=== PATIENT | female | born 1955 | race Caucasian/White ===

== ENCOUNTER 2017-06-11 12:34 | Inpatient (IN) | payer MEDICAID, OTHER ==
[~2017-06-11] VITALS: Ht 167.6 cm; Wt 148.0 kg
[~2017-06-11 12:34] MED LIST: ASPI81 PO; FURO40TA PO; KLOR20TA6 PO; MEDR5TAB20 PO; PROT40TA PO; TOPR50TA PO; VITA-83 OR; VITA400C28 PO
[2017-06-11 12:38] VITALS: BP 199/96; PULSE 103; RESP 26; TEMP 97.9; O2SAT 98
[2017-06-11] MEDS ORDERED: SODIUM CHLOR 0.9% 1000 ML INJ 1,000 ML IV SCH (12:55)
[2017-06-11] MEDS ORDERED: VANCOMYCIN INJ 1,000 MG in SODIUM CHLOR 0.9% 250 ML INJ 250 ML IV ONE (13:00)
[2017-06-11] MEDS ORDERED: AMPICILLIN-SULBACTAM INJ 3 GM in SODIUM CHLORIDE 0.9% INJ 100 ML IV ONE (13:00)
[2017-06-11] MEDS ORDERED: MORPHINE SULFATE 4 MG/ML INJ IV PUSH ONE (13:00)
[2017-06-11] MEDS ORDERED: KETOROLAC TROMETHAMINE 30 MG/ML (IVP) VIAL IV PUSH ONE (13:30)
[2017-06-11] MEDS ORDERED: ONDANSETRON HCL 4 MG/2 ML VIAL IV PUSH ONE (13:30)
[2017-06-11] MEDS ORDERED: HYDROmorphone HCL PF 2 MG/ML VIAL IV PUSH ONE (13:30)
[2017-06-11 13:36] LABS: BASOPHIL # 0.1 TH/MM3 (0-0.2); BASOPHIL % 0.7 % (0.0-2.0); EOSINOPHIL # 0.2 TH/MM3 (0-0.4); EOSINOPHIL % 1.1 % (0.0-4.0); HEMATOCRIT 37.5 % (35.0-46.0); HEMOGLOBIN 11.8 GM/DL (11.6-15.3); LYMPH % 6.2 % (9.0-44.0); LYMPHOCYTE # 1.2 TH/MM3 (1.0-4.8); MEAN CELL VOLUME 78.8 FL (80.0-100.0); MEAN CORPUSCULAR HEMOGLOBIN 24.8 PG (27.0-34.0); MEAN CORPUSCULAR HGB CONC 31.4 % (32.0-36.0); MEAN PLATELET VOLUME 7.2 FL (7.0-11.0); MONOCYTE # 1.1 TH/MM3 (0-0.9); PLATELET COUNT 566 TH/MM3 (150-450); RED BLOOD COUNT 4.75 MIL/MM3 (4.00-5.30); RED CELL DISTRIBUTION WIDTH 17.8 % (11.6-17.2); WHITE BLOOD COUNT 18.5 TH/MM3 (4.0-11.0)
[2017-06-11 13:57] LABS: ALBUMIN 2.5 GM/DL (3.4-5.0); ALT (GPT) 23 U/L (10-53); AST (GOT) 18 U/L (15-37); BICARBONATE 19.2 MEQ/L (21.0-32.0); BLOOD UREA NITROGEN 44 MG/DL (7-18); C-REACTIVE PROTEIN 8.47 MG/DL (0.00-0.30); CALCIUM 8.9 MG/DL (8.5-10.1); CHLORIDE 100 MEQ/L (98-107); CREATININE 1.55 MG/DL (0.50-1.00); GLOMERULAR FILTRATION RATE 34 ML/MIN (>89); GLUCOSE,RANDOM 182 MG/DL (74-106); SODIUM (NA) 129 MEQ/L (136-145)
[2017-06-11 13:59] LABS: ALKALINE PHOSPHATASE 98 U/L (45-117); TOTAL BILIRUBIN ADULT 0.3 MG/DL (0.2-1.0); TOTAL PROTEIN 7.7 GM/DL (6.4-8.2)
--- NOTE | 2017-06-11 14:13 | PD ---
HPI Chief Complaint: Skin Problem Time Seen by Provider: 12:47 Travel History International Travel<30 days: No Contact w/Intl Traveler<30days: No Traveled to known affect area: No History of Present Illness HPI 62-year-old female that presents to the ED for evaluation of skin problem to the lower legs. Per patient she's been having an infection that she's had for almost 3 weeks to 4 weeks. Patient states that she was admitted to [facility] on April for the same and was put on antibiotics but per patient she was not given any outpatient resources. Per patient she has been going to multiple ERs to get checked for her legs but they keep giving her by mouth antibiotics and she continues to get worse. She states that she's been twice a [facility] and she's been compliant with the medications given to her including many pendant as well as Levaquin and apparently Percocet. Per patient the pain is getting more severe and the legs do not seem to be improving and she is concerned. She is concerned that the pain is 10 out of 10. She states that she is taking pain medication from another individual. She denies any chest pressure was over appears his is having chills and sweats. No injuries or trauma. She does have a chronic history of venous stasis and leg edema which appears to be chronic. She does take Lasix. PFSH Past Medical History Autoimmune Disease: No Blood Disorders: No Cancer: No Cardiovascular Problems: Yes (SINGLE EPISODE TACHYCARDIA) High Cholesterol: Yes Chest Pain: Yes Diabetes: Yes Patient Takes Glucophage: Yes (06/10/17) Diminished Hearing: No Endocrine: No Gastrointestinal Disorders: Yes (GERD) GERD: Yes Glaucoma: No Genitourinary: No Hepatitis: No Hiatal Hernia: No Hypertension: Yes Immune Disorder: No Medical other: Yes (REFLUX) Musculoskeletal: No Neurologic: No Psychiatric: No Reproductive: Yes (POST MENOPAUSAL BLEEDING) Respiratory: No Thyroid Disease: No Influenza Vaccination: Yes ?: Not Past Surgical History Abdominal Surgery: Yes (REDDY ) Body Medical Devices: NONE Section: Yes Cholecystectomy: Yes Gynecologic Surgery: Yes (C SECTION X 3; D&C HYSTEROSCOPY 01/13 AND 12/14) Pacemaker: No Other Surgery: Yes Social History Alcohol Use: No Tobacco Use: No Substance Use: No Allergies-Medications (Allergen,Severity, Reaction): Coded Allergies: No Known Allergies (Verified , 07/31/13) Reported Meds & Prescriptions Reported Meds & Active Scripts Active Reported Vitamin D 400 Unit Tab 400 Unit PO DAILY Furosemide 40 Mg Tab 40 Mg PO DAILY Vitamin C (Calcium Ascorbate) 500 Mg Tab 1,000 Mg OR DAILY Medroxyprogesterone Aceta (Medroxyprogesterone Acetate) 5 Mg Tab 2.5 Mg PO DAILY Aspirin 81 Mg Tab 81 Mg PO DAILY K-Dur (Potassium Chloride) 20 Meq Tabcr 10 Meq PO DAILY Protonix (Pantoprazole Sodium) 40 Mg Tabdr 40 Mg PO HS Toprol Xl (Metoprolol Succinate) 50 Mg Tabcr 50 Mg PO BID Review of Systems Except as stated in HPI: all other systems reviewed are Neg Physical Exam Narrative GENERAL: SKIN: Warm and dry. HEAD: Atraumatic. Normocephalic. EYES: Pupils equal and round. No scleral icterus. No injection or drainage. ENT: No nasal bleeding or discharge. Mucous membranes pink and moist. Tongue is midline. No uvula deviation. NECK: Trachea midline. No JVD. CARDIOVASCULAR: Regular rate and rhythm. No murmurs, S3, S4. RESPIRATORY: No accessory muscle use. Clear to auscultation. Breath sounds equal bilaterally. GASTROINTESTINAL: Abdomen soft, non-tender, nondistended. Hepatic and splenic margins not palpable. MUSCULOSKELETAL: Extremities without clubbing, cyanosis, or edema. No obvious deformities. Full range of motion of the upper and lower extremities bilaterally. Patient does have 2+ pitting edema in the lower legs with erythema and ulcerations to the legs bilaterally. More noted on the tib-fib area. Very tender to touch. Very erythematous and weeping white yellowish fluid. Very foul smelling. NEUROLOGICAL: Awake and alert. No obvious cranial nerve deficits. Motor grossly within normal limits. Five out of 5 muscle strength in the arms and legs. Normal speech. PSYCHIATRIC: Appropriate mood and affect; insight and judgment normal. Data Data Last Documented VS Vital Signs Date Time Temp Pulse Resp B/P (MAP) Pulse Ox O2 Delivery O2 Flow Rate FiO2 06/11/17 12:38 97.9 103 26 199/96 (130) 98 Orders Orders Complete Blood Count With Diff (06/11/17 12:55) Comprehensive Metabolic Panel (06/11/17 12:55) Lactic Acid (06/11/17 12:55) Iv Access Insert/Monitor (06/11/17 12:55) Ecg Monitoring (06/11/17 12:55) Oximetry (06/11/17 12:55) Morphine Inj (Morphine Inj) (06/11/17 13:00) Sodium Chlor 0.9% 1000 Ml Inj (Ns 1000 M (06/11/17 12:55) Blood Culture (06/11/17 12:55) Wound Culture And Gram Stain (06/11/17 12:55) Wound Care (06/11/17 12:55) Vancomycin Inj (Vancomycin Inj) (06/11/17 13:00) Ampicillin-Sulbactam Inj (Unasyn Inj) (06/11/17 13:00) Lactic Acid Sepsis Protocol (06/11/17 12:55) C-Reactive Protein (Crp) (06/11/17 12:55) Hydromorphone Pf Inj (Dilaudid Pf Inj) (06/11/17 13:30) Ondansetron Inj (Zofran Inj) (06/11/17 13:30) Ketorolac Inj (Toradol Inj) (06/11/17 13:30) Sodium Chlor 0.9% 1000 Ml Inj (Ns 1000 M (06/11/17 14:15) Admit Order (Ed Use Only) (06/11/17 14:32) Labs Laboratory Tests Test 06/11/17 13:12 White Blood Count 18.5 TH/MM3 Red Blood Count 4.75 MIL/MM3 Hemoglobin 11.8 GM/DL Hematocrit 37.5 % Mean Corpuscular Volume 78.8 FL Mean Corpuscular Hemoglobin 24.8 PG Mean Corpuscular Hemoglobin Concent 31.4 % Red Cell Distribution Width 17.8 % Platelet Count 566 TH/MM3 Mean Platelet Volume 7.2 FL Neutrophils (%) (Auto) 86.0 % Lymphocytes (%) (Auto) 6.2 % Monocytes (%) (Auto) 6.0 % Eosinophils (%) (Auto) 1.1 % Basophils (%) (Auto) 0.7 % Neutrophils # (Auto) 16.0 TH/MM3 Lymphocytes # (Auto) 1.2 TH/MM3 Monocytes # (Auto) 1.1 TH/MM3 Eosinophils # (Auto) 0.2 TH/MM3 Basophils # (Auto) 0.1 TH/MM3 CBC Comment DIFF FINAL Differential Comment Blood Urea Nitrogen 44 MG/DL Creatinine 1.55 MG/DL Random Glucose 182 MG/DL Total Protein 7.7 GM/DL Albumin 2.5 GM/DL Calcium Level 8.9 MG/DL Alkaline Phosphatase 98 U/L Aspartate Amino Transf (AST/SGOT) 18 U/L Alanine Aminotransferase (ALT/SGPT) 23 U/L Total Bilirubin 0.3 MG/DL Sodium Level 129 MEQ/L Potassium Level 5.6 MEQ/L Chloride Level 100 MEQ/L Carbon Dioxide Level 19.2 MEQ/L Anion Gap 10 MEQ/L Estimat Glomerular Filtration Rate 34 ML/MIN Lactic Acid Level 2.3 mmol/L C-Reactive Protein 8.47 MG/DL MDM Medical Decision Making Medical Screen Exam Complete: Yes Emergency Medical Condition: Yes Medical Record Reviewed: Yes Interpretation(s) CBC & BMP Diagram 06/11/17 13:12 Total Protein 7.7, Albumin 2.5 L, Calcium Level 8.9, Alkaline Phosphatase 98, Aspartate Amino Transf (AST/SGOT) 18, Alanine Aminotransferase (ALT/SGPT) 23, Total Bilirubin 0.3 lactic acid elevated CRP highly elevated Differential Diagnosis Cellulitis versus failed outpatient treatment versus sepsis versus chronic ulcers Narrative Course 62-year-old female that presents to the ED for evaluation of leg swelling and pain. Patient was properly examined and was found to have signs and symptoms consistent with what appears to be significant cellulitis. Patient already taking antibiotics by mouth. Per patient she was seen at [facility] had cultures that show for different bacteria but she does not have information about this bacteria. She's never been this hospital for this before. Labs and imaging were ordered. Patient was started on antibiotics. I did a culture here as well as blood cultures. Labs did show significant white blood cell count elevation as well as likely acidosis. CRP elevated what appears to be also acute kidney injury. Locomotion is time for admission for further evaluation and treatment of the cellulitis as she has failed outpatient treatment. I was able to get records from [facility] and she was seen twice last time in June 04. She had blood work that did show leukocytosis but she was sent with by mouth medications as well as by mouth narcotics. I do not have any results of any blood cultures or wound cultures that were done, if they were done at that time. I suspect some noncompliance as well as from the patient. Patient will be admitted. Patient agrees to this. Case will be discussed with [facility] doctor. Dr Gaming agrees to admission. Sepsis Criteria SIRS Criteria (2 or more): Heart rate over 90, WBC > 28675, < 4000 or > 10% bands Sepsis Criteria (SIRS+source): Infect source susp/known Severe Sepsis (+one): Lactate >2 Criteria Outcome: Meets severe sepsis criteria Diagnosis Primary Impression: Cellulitis Qualified Codes: L03.119 - Cellulitis of unspecified part of limb Additional Impression: Sepsis Qualified Codes: A41.9 - Sepsis, unspecified organism Admitting Information Admitting Physician Requests: Admit Myles Gipson Jun 11, 2017 14:13
[2017-06-11] MEDS ORDERED: SODIUM CHLOR 0.9% 1000 ML INJ 1,000 ML IV ONE (14:15)
[2017-06-11] MEDS ORDERED: SENNOSIDES 8.6 MG TAB PO PRN (15:00)
[2017-06-11] MEDS ORDERED: ACETAMINOPHEN 325 MG TAB PO PRN (15:00)
[2017-06-11] MEDS ORDERED: GLUCAGON 1 MG/ML VIAL OTHER PRN (15:00)
[2017-06-11] MEDS ORDERED: ONDANSETRON HCL 4 MG/2 ML VIAL IVP PRN (15:00)
[2017-06-11] MEDS ORDERED: SODIUM CHLORIDE 0.9% FLUSH 10 ML FLUSH IV FLUSH PRN (15:00)
[2017-06-11] MEDS ORDERED: NALOXONE HCL 0.4 MG/ML AMP IV PUSH PRN (15:00)
[2017-06-11] MEDS ORDERED: BISACODYL 10 MG SUPP RECTAL PRN (15:00)
[2017-06-11] MEDS ORDERED: MAGNESIUM HYDROXIDE SUSP 30 ML CUP PO PRN (15:00)
[2017-06-11] MEDS ORDERED: LACTULOSE SYRUP 20 GM/30 ML CUP PO PRN (15:00)
[2017-06-11] MEDS ORDERED: METF500T PO (15:00)
[2017-06-11] MEDS ORDERED: DEXTROSE 50% IN WATER 50 ML VIAL(D50) IV PUSH PRN (15:00)
[2017-06-11 15:12] VITALS: BP 149/67; PULSE 79; RESP 17; O2SAT 98
[2017-06-11] MEDS: VANCOMYCIN INJ 1,000 MG in SODIUM CHLOR 0.9% 250 ML INJ 250 ML IV SCH (16:00)
--- NOTE | 2017-06-11 16:29 | HHI.HP ---
HPI Service [facility] Primary Care Physician Lamonte Lewis D.O. Admission Diagnosis bilateral leg cellulitis, failed outpatient treatment, JOVANNY Diagnoses: Travel History International Travel<30 Days: No Contact w/Intl Traveler <30 Da: No Traveled to Known Affected Are: No History of Present Illness 62F with h/o obesity, DM2 and neuropathy presents with open infection of bilateral lower extremities, worse on the left than the right. This all began around April 30 when she visited [facility] with similar symptoms, during that hospitalization she was given antibiotics for 5 days, and had drastic improvement. She did not, however, have closure of the wounds and after going home had no follow up for wound care, so things slowly became worse. She revisited the ER at [facility] one more time, but was not admitted. Today she complains of intractable pain related to the open ulcerations of her lower legs. She has had subjective fevers and the smell and drainage has become worrisome to her. She is unable to care for herself at home and her daughter is not able to care for her at this level. Review of Systems Constitutional: COMPLAINS OF: Fatigue, Fever, DENIES: Diaphoretic episodes, Weight gain, Weight loss Endocrine: DENIES: Polydipsia, Polyuria Ears, nose, mouth, throat: DENIES: Vertigo, Running Nose, Sinus Pain, Toothache Respiratory: DENIES: Cough Genitourinary: DENIES: Urinary incontinence, Urgency, Dysuria Musculoskeletal: DENIES: Joint pain, Stiffness, Joint Swelling Neurologic: DENIES: Seizures Psychiatric: DENIES: Anxiety, Confusion, Mood changes, Depression Past Family Social History Past Medical History DM2 Past Surgical History Cholecystectomy Allergies: Coded Allergies: No Known Allergies (Verified Allergy, Unknown, 06/11/17) Family History Type 2 diabetes Social History Denies tobacco or alcohol use Physical Exam Vital Signs Vital Signs Date Time Temp Pulse Resp B/P (MAP) Pulse Ox O2 Delivery O2 Flow Rate FiO2 06/11/17 15:12 79 17 149/67 (94) 98 Room Air 06/11/17 12:38 97.9 103 26 199/96 (130) 98 Physical Exam GENERAL: Obese, poor health, somewhat disheveled female SKIN: Wild open wet wounds on bilateral posterior LE's with caked clumpy yellowish deposits, very smelly, open HEAD: Atraumatic. Normocephalic. No temporal or scalp tenderness. EYES: Pupils equal round and reactive. Extraocular motions intact. No scleral icterus. No injection or drainage. ENT: Nose without bleeding, purulent drainage or septal hematoma. Throat without erythema, tonsillar hypertrophy or exudate. Uvula midline. Airway patent. NECK: Trachea midline. No JVD or lymphadenopathy. Supple, nontender, no meningeal signs. CARDIOVASCULAR: Regular rate and rhythm without murmurs, gallops, or rubs. RESPIRATORY: Clear to auscultation. Breath sounds equal bilaterally. No wheezes , rales, or rhonchi. GASTROINTESTINAL: Abdomen soft, obese, non-tender, nondistended. No hepato- splenomegaly, or palpable masses. No guarding. MUSCULOSKELETAL: Extremities without clubbing, cyanosis, or edema. No joint tenderness, effusion, lymphedematous ankles NEUROLOGICAL: Awake and alert. Cranial nerves II through XII intact. Motor and sensory grossly within normal limits. Five out of 5 muscle strength in all muscle groups. Normal speech. Laboratory Laboratory Tests Test 06/11/17 13:12 06/11/17 15:27 White Blood Count 18.5 Red Blood Count 4.75 Hemoglobin 11.8 Hematocrit 37.5 Mean Corpuscular Volume 78.8 Mean Corpuscular Hemoglobin 24.8 Mean Corpuscular Hemoglobin Concent 31.4 Red Cell Distribution Width 17.8 Platelet Count 566 Mean Platelet Volume 7.2 Neutrophils (%) (Auto) 86.0 Lymphocytes (%) (Auto) 6.2 Monocytes (%) (Auto) 6.0 Eosinophils (%) (Auto) 1.1 Basophils (%) (Auto) 0.7 Neutrophils # (Auto) 16.0 Lymphocytes # (Auto) 1.2 Monocytes # (Auto) 1.1 Eosinophils # (Auto) 0.2 Basophils # (Auto) 0.1 CBC Comment DIFF FINAL Differential Comment Blood Urea Nitrogen 44 Creatinine 1.55 Random Glucose 182 Total Protein 7.7 Albumin 2.5 Calcium Level 8.9 Alkaline Phosphatase 98 Aspartate Amino Transf (AST/SGOT) 18 Alanine Aminotransferase (ALT/SGPT) 23 Total Bilirubin 0.3 Sodium Level 129 Potassium Level 5.6 Chloride Level 100 Carbon Dioxide Level 19.2 Anion Gap 10 Estimat Glomerular Filtration Rate 34 Lactic Acid Level 2.3 1.4 C-Reactive Protein 8.47 Date/Time Source Procedure Growth Status 06/11/17 13:12 Blood Peripheral Aerobic Blood Culture Pending Received 06/11/17 13:12 Blood Peripheral Anaerobic Blood Culture Pending Received 06/11/17 13:12 Wound Leg Gram Stain Pending Received 06/11/17 13:12 Wound Leg Wound Culture Pending Received Result Diagram: 06/11/17 1312 06/11/17 1312 Septic Shock Reassessment Septic shock perfusion: reassessment completed Caprini VTE Risk Assessment Caprini VTE Risk Assessment: Mod/High Risk (score >= 2) Caprini Risk Assessment Model Point Value = 1 Point Value = 2 Point Value = 3 Point Value = 5 Age 41-60 Minor surgery BMI > 25 kg/m2 Swollen legs Varicose veins or History of unexplained or recurrent spontaneous Oral contraceptives or hormone replacement Sepsis (< 1 month) Serious lung disease, including pneumonia (< 1 month) Abnormal pulmonary function Acute myocardial infarction Congestive heart failure (< 1 month) History of inflammatory bowel disease Medical patient at bed rest Age 61-74 Arthroscopic surgery Major open surgery (> 45 min) Laparoscopic surgery (> 45 min) Malignancy Confined to bed (> 72 hours) Immobilizing plaster cast Central venous access Age >= 75 History of VTE Family history of VTE Factor V Leiden Prothrombin [id number] Lupus anticoagulant Anticardiolipin antibodies Elevated serum homocysteine Heparin-induced thrombocytopenia Other congenital or acquired thrombophilia Stroke (< 1 month) Elective arthroplasty Hip, pelvis, or leg fracture Acute spinal cord injury (< 1 month) Prophylaxis Regimen Total Risk Factor Score Risk Level Prophylaxis Regimen 0-1 Low Early ambulation 2 Moderate Order ONE of the following: *Sequential Compression Device (SCD) *Heparin 5000 units SQ BID 3-4 Higher Order ONE of the following medications: *Heparin 5000 units SQ TID *Enoxaparin/Lovenox 40 mg SQ daily (WT < 150 kg, CrCl > 30 mL/min) *Enoxaparin/Lovenox 30 mg SQ daily (WT < 150 kg, CrCl > 10-29 mL/min) *Enoxaparin/Lovenox 30 mg SQ BID (WT < 150 kg, CrCl > 30 mL/min) AND/OR *Sequential Compression Device (SCD) 5 or more Highest Order ONE of the following medications: *Heparin 5000 units SQ TID (Preferred with Epidurals) *Enoxaparin/Lovenox 40 mg SQ daily (WT < 150 kg, CrCl > 30 mL/min) *Enoxaparin/Lovenox 30 mg SQ daily (WT < 150 kg, CrCl > 10-29 mL/min) *Enoxaparin/Lovenox 30 mg SQ BID (WT < 150 kg, CrCl > 30 mL/min) AND *Sequential Compression Device (SCD) Assessment and Plan Problem List: (1) Sepsis ICD Code: A41.9 - Sepsis, unspecified organism Status: Acute (2) Cellulitis ICD Code: L03.90 - Cellulitis, unspecified Status: Acute Assessment and Plan Bilateral LE cellulitis with Sepsis Continue broad spectrum coverage with Vancomycin and Zosyn, coverage for MRSA and Sepsis Will review narcotics for adequate pain control Consult wound care wrecker operator for evaluation Follow up Lactic Acid level, monitor on telemetry and watch closely for any changes Type 2 Diabetes Sliding scale insulin coverage Diabetic Diet Accuchecks Acute Renal Insufficiency Seems secondary to dehydration Will replenish via PO and follow BUN/Cr DVT Prophylaxis Lovenox Physician Certification 2 Midnight Certification Type: Admission for Inpatient Services Order for Inpatient Services The services are ordered in accordance with Medicare regulations or non- Medicare payer requirements, as applicable. In the case of services not specified as inpatient-only, they are appropriately provided as inpatient services in accordance with the 2-midnight benchmark. Estimated LOS (days): 3 days is the estimated time the patient will need to remain in the hospital, assuming treatment plan goals are met and no additional complications. Post-Hospital Plan: Home Health Problem Qualifiers (1) Sepsis: Qualified Codes: A41.9 - Sepsis, unspecified organism (2) Cellulitis: Qualified Codes: L03.119 - Cellulitis of unspecified part of limb Ramiro Gaming MD Jun 11, 2017 4:29 pm
[2017-06-11] MEDS ORDERED: AMPICILLIN-SULBACTAM INJ 1,500 MG in SODIUM CHLORIDE 0.9% INJ 100 ML IV SCH (17:00)
[2017-06-11] MEDS ORDERED: PROT40TA PO (17:09)
[2017-06-11] MEDS ORDERED: TOPR50TA PO (17:09)
[2017-06-11] MEDS ORDERED: POTA10TA15 PO (17:09)
[2017-06-11] MEDS ORDERED: ASPI81TA16 PO (17:09)
[2017-06-11] MEDS ORDERED: VITATAB56 PO (17:09)
[2017-06-11] MEDS ORDERED: ASCO100029 PO (17:09)
[2017-06-11] MEDS ORDERED: FURO1TAB60 PO (17:09)
[2017-06-11 17:55] VITALS: BP 134/59; PULSE 89; RESP 20; TEMP 98.7; O2SAT 98
[2017-06-11] MEDS: INSULIN ASPART SUPPLEMENTAL SCALE SQ SCH ×2 (18:01→20:46)
[2017-06-11] MEDS: ENOXAPARIN SODIUM 40 MG/0.4 ML SYRINGE SQ SCH (18:19)
[2017-06-11 20:00] VITALS: BP 148/70; PULSE 101; PULSE 89; RESP 17; TEMP 97.7; O2SAT 98
[2017-06-11] MEDS: SODIUM CHLORIDE 0.9% FLUSH 10 ML FLUSH IV FLUSH SCH (20:45)
[2017-06-11] MEDS: AMPICILLIN-SULBACTAM INJ 1,500 MG in SODIUM CHLORIDE 0.9% INJ 100 ML IV SCH (20:46)
[2017-06-11] MEDS: DOCUSATE SODIUM 50 MG/SENNA 8.6 MG TAB PO SCH (20:46)
[2017-06-11] MEDS: oxyCODONE/ACETAMINOPHEN 7.5 MG/325 MG TAB PO PRN (23:59)
[2017-06-12] VITALS: BP 145/67; PULSE 88; RESP 17; TEMP 97.8; O2SAT 97
[2017-06-12] MEDS: AMPICILLIN-SULBACTAM INJ 1,500 MG in SODIUM CHLORIDE 0.9% INJ 100 ML IV SCH ×2 (01:59→09:08)
[2017-06-12] MEDS: VANCOMYCIN INJ 1,000 MG in SODIUM CHLOR 0.9% 250 ML INJ 250 ML IV SCH ×2 (02:58→15:15)
[2017-06-12 04:00] VITALS: BP 144/67; PULSE 69; PULSE 88; RESP 17; TEMP 97.8; O2SAT 97
[2017-06-12] MEDS: oxyCODONE/ACETAMINOPHEN 7.5 MG/325 MG TAB PO PRN ×4 (04:34→22:24)
[2017-06-12 07:22] LABS: AUTOMATED NEUTROPHIL # 14.8 TH/MM3 (1.8-7.7); BASOPHIL # 0.1 TH/MM3 (0-0.2); BASOPHIL % 0.6 % (0.0-2.0); EOSINOPHIL # 0.2 TH/MM3 (0-0.4); EOSINOPHIL % 1.1 % (0.0-4.0); HEMATOCRIT 32.8 % (35.0-46.0); HEMOGLOBIN 10.6 GM/DL (11.6-15.3); LYMPH % 6.6 % (9.0-44.0); LYMPHOCYTE # 1.2 TH/MM3 (1.0-4.8); MEAN CELL VOLUME 79.2 FL (80.0-100.0); MEAN CORPUSCULAR HEMOGLOBIN 25.6 PG (27.0-34.0); MEAN CORPUSCULAR HGB CONC 32.3 % (32.0-36.0); MEAN PLATELET VOLUME 6.9 FL (7.0-11.0); MONO % 8.3 % (0.0-8.0); MONOCYTE # 1.5 TH/MM3 (0-0.9); NEUT % 83.4 % (16.0-70.0); PLATELET COUNT 455 TH/MM3 (150-450); RED BLOOD COUNT 4.14 MIL/MM3 (4.00-5.30); RED CELL DISTRIBUTION WIDTH 17.5 % (11.6-17.2); WHITE BLOOD COUNT 17.7 TH/MM3 (4.0-11.0)
[2017-06-12 07:41] LABS: BICARBONATE 19.4 MEQ/L (21.0-32.0); CALCIUM 8.2 MG/DL (8.5-10.1); CREATININE 1.3 MG/DL (0.50-1.00)
[2017-06-12 08:00] VITALS: BP 105/60; PULSE 60; PULSE 67; RESP 18; TEMP 97.2; O2SAT 96
[2017-06-12] MEDS: INSULIN ASPART SUPPLEMENTAL SCALE SQ SCH ×4 (08:00→21:09)
[2017-06-12] MEDS: SODIUM CHLORIDE 0.9% FLUSH 10 ML FLUSH IV FLUSH SCH ×2 (09:17→21:09)
[2017-06-12] MEDS: DOCUSATE SODIUM 50 MG/SENNA 8.6 MG TAB PO SCH ×2 (09:18→21:00)
[2017-06-12] MEDS ORDERED: INFLUENZA VIRUS VACCINE (QUADRIVALENT) 0.5 ML SYR IM ONE (10:00)
[2017-06-12] MEDS ORDERED: PNEUMOCOCCAL POLYVALENT INJ 25 MCG/0.5 ML SYR IM ONE (10:00)
--- NOTE | 2017-06-12 11:58 | HHI.PR ---
Subjective Remarks Follow-up sepsis/bilateral lower extremity cellulitis/chronic venous stasis 06/12/17-patient seen and examined, currently afebrile and complains of bilateral lower extremity pain. States, she's had poor care after discharge from previous hospitalization. Objective Vitals Vital Signs Date Time Temp Pulse Resp B/P (MAP) Pulse Ox O2 Delivery O2 Flow Rate FiO2 06/12/17 08:00 97.2 67 18 105/60 (75) 96 06/12/17 08:00 60 06/12/17 04:00 69 06/12/17 04:00 97.8 88 17 144/67 (92) 97 06/12/17 00:00 97.8 88 17 145/67 (93) 97 06/12/17 00:00 88 06/11/17 20:00 97.7 89 17 148/70 (96) 98 06/11/17 20:00 101 06/11/17 18:12 06/11/17 17:55 98.7 89 20 134/59 (84) 98 06/11/17 15:12 79 17 149/67 (94) 98 Room Air 06/11/17 12:38 97.9 103 26 199/96 (130) 98 I/O 06/11/17 06/11/17 06/11/17 06/12/17 06/12/17 06/12/17 07:00 15:00 23:00 07:00 15:00 23:00 Intake Total 2350 ml 560 ml Balance 2350 ml 560 ml Intake Oral 210 ml IV Total 2350 ml 350 ml # Voids 2 # Bowel Movements 0 Result Diagram: 06/12/17 0610 06/12/17 0610 Objective Remarks GENERAL: NAD SKIN: Warm and dry. HEAD: Normocephalic. EYES: No scleral icterus. No injection or drainage. NECK: Supple, trachea midline. No JVD or lymphadenopathy. CARDIOVASCULAR: Regular rate and rhythm without murmurs, gallops, or rubs. RESPIRATORY: Breath sounds equal bilaterally. No accessory muscle use. GASTROINTESTINAL: Abdomen soft, non-tender, nondistended. MUSCULOSKELETAL: No cyanosis; BLE wrapped with dressing BACK: Nontender without obvious deformity. No CVA tenderness. A/P Problem List: (1) Sepsis ICD Code: A41.9 - Sepsis, unspecified organism Status: Acute (2) Cellulitis ICD Code: L03.90 - Cellulitis, unspecified Status: Acute Assessment and Plan 62-year-old female with Sepsis Secondary to bilateral lower extremity edema Currently on Unasyn and vancomycin, however we'll switch to Zosyn and continue vancomycin pending culture report Bilateral lower extremity cellulitis Chronic venous stasis Continue with above antibiotics pending culture report Consult wound care nurse Diabetes type 2 Resume metformin Hypertension Resume Toprol-XL Acute on chronic kidney disease Renal indices improving Hyperkalemia Monitor electrolyte and treat accordingly with Kayexalate DVT prophylaxis: Heparin subcutaneous every 12 hours Problem Qualifiers (1) Sepsis: Qualified Codes: A41.9 - Sepsis, unspecified organism (2) Cellulitis: Qualified Codes: L03.119 - Cellulitis of unspecified part of limb Damion Simon MD Jun 12, 2017 11:58
[2017-06-12 12:00] VITALS: BP 142/67; PULSE 73; RESP 18; TEMP 97.6; O2SAT 97
[2017-06-12] MEDS: FUROSEMIDE 40 MG TAB PO SCH (13:49)
[2017-06-12] MEDS: PIPERACIL-TAZO 3.375 GM PREMIX 50 ML IV SCH ×2 (14:34→21:08)
[2017-06-12] MEDS: ENOXAPARIN SODIUM 40 MG/0.4 ML SYRINGE SQ SCH (15:16)
[2017-06-12 16:00] VITALS: BP 134/59; PULSE 65; RESP 18; TEMP 97.7; O2SAT 98
[2017-06-12] MEDS: metFORMIN HCL 500 MG TAB PO SCH (17:41)
[2017-06-12 20:00] VITALS: BP 102/63; PULSE 72; RESP 20; TEMP 98; O2SAT 98
[2017-06-12] MEDS: METOPROLOL SUCCINATE 50 MG EXTENDED RELEASE TAB PO SCH (21:00)
[2017-06-13] VITALS: BP 111/65; PULSE 80; RESP 22; TEMP 98.1; O2SAT 97
[2017-06-13] MEDS: VANCOMYCIN INJ 1,000 MG in SODIUM CHLOR 0.9% 250 ML INJ 250 ML IV SCH ×2 (03:12→16:00)
[2017-06-13] MEDS: oxyCODONE/ACETAMINOPHEN 7.5 MG/325 MG TAB PO PRN ×4 (03:13→21:10)
[2017-06-13 04:00] VITALS: BP 113/60; PULSE 70; RESP 20; TEMP 97.7; O2SAT 97
[2017-06-13] MEDS: PIPERACIL-TAZO 3.375 GM PREMIX 50 ML IV SCH ×3 (04:44→21:10)
[2017-06-13 08:00] VITALS: BP 113/56; PULSE 73; RESP 18; TEMP 98.4; O2SAT 98
[2017-06-13] MEDS: INSULIN ASPART SUPPLEMENTAL SCALE SQ SCH ×4 (08:00→21:00)
[2017-06-13] MEDS: FUROSEMIDE 40 MG TAB PO SCH (09:00)
[2017-06-13] MEDS: SODIUM CHLORIDE 0.9% FLUSH 10 ML FLUSH IV FLUSH SCH ×2 (09:00→21:10)
[2017-06-13] MEDS: DOCUSATE SODIUM 50 MG/SENNA 8.6 MG TAB PO SCH ×2 (09:00→21:10)
[2017-06-13] MEDS: metFORMIN HCL 500 MG TAB PO SCH ×2 (09:00→18:00)
[2017-06-13] MEDS: ASPIRIN EC 81 MG TABEC PO SCH (09:00)
[2017-06-13] MEDS: METOPROLOL SUCCINATE 50 MG EXTENDED RELEASE TAB PO SCH ×2 (09:00→21:10)
--- NOTE | 2017-06-13 09:31 | HHI.PR ---
Subjective Remarks Follow-up sepsis/bilateral lower extremity cellulitis/chronic venous stasis 06/12/17-patient seen and examined, currently afebrile and complains of bilateral lower extremity pain. States, she's had poor care after discharge from previous hospitalization. 06/13/17-patient seen and examined, no acute event overnight and currently afebrile.+ BLE pain. Case discussed with case monitor regarding discharge disposition. Objective Vitals Vital Signs Date Time Temp Pulse Resp B/P (MAP) Pulse Ox O2 Delivery O2 Flow Rate FiO2 06/13/17 08:00 98.4 73 18 113/56 (75) 98 06/13/17 04:00 97.7 70 20 113/60 (77) 97 06/13/17 00:00 98.1 80 22 111/65 (80) 97 06/12/17 20:00 Room Air 06/12/17 20:00 98.0 72 20 102/63 (76) 98 06/12/17 16:00 97.7 65 18 134/59 (84) 98 06/12/17 12:00 97.6 73 18 142/67 (92) 97 I/O 06/12/17 06/12/17 06/12/17 06/13/17 06/13/17 06/13/17 07:00 15:00 23:00 07:00 15:00 23:00 Intake Total 560 ml 770 ml 600 ml Output Total 520 ml Balance 560 ml 770 ml 80 ml Intake Oral 210 ml 720 ml 300 ml IV Total 350 ml 50 ml 300 ml Output Urine Total 520 ml # Voids 2 6 # Bowel Movements 0 0 Result Diagram: 06/12/17 0610 06/12/17 0610 Objective Remarks GENERAL: NAD SKIN: Warm and dry. HEAD: Normocephalic. EYES: No scleral icterus. No injection or drainage. NECK: Supple, trachea midline. No JVD or lymphadenopathy. CARDIOVASCULAR: Regular rate and rhythm without murmurs, gallops, or rubs. RESPIRATORY: Breath sounds equal bilaterally. No accessory muscle use. GASTROINTESTINAL: Abdomen soft, non-tender, nondistended. MUSCULOSKELETAL: No cyanosis; BLE wrapped with dressing BACK: Nontender without obvious deformity. No CVA tenderness. A/P Problem List: (1) Sepsis ICD Code: A41.9 - Sepsis, unspecified organism Status: Acute (2) Cellulitis ICD Code: L03.90 - Cellulitis, unspecified Status: Acute Assessment and Plan 62-year-old female with Sepsis Secondary to bilateral lower extremity edema Currently on vancomycin and Zosyn and pending culture report Bilateral lower extremity cellulitis-MRSA Chronic venous stasis Continue with above antibiotics pending culture report Consult wound care nurse and Physician consult pending Diabetes type 2 Continue metformin +ISS Hypertension Continue Toprol-XL Acute on chronic kidney disease Renal indices improving Hyperkalemia Monitor electrolyte and treat accordingly with Kayexalate DVT prophylaxis: Heparin subcutaneous every 12 hours Problem Qualifiers (1) Sepsis: Qualified Codes: A41.9 - Sepsis, unspecified organism (2) Cellulitis: Qualified Codes: L03.119 - Cellulitis of unspecified part of limb Damion Simon MD Jun 13, 2017 09:31
[2017-06-13] MEDS ORDERED: MORPHINE SULFATE 2 MG/ML INJ IV PUSH ONE (10:15)
[2017-06-13 11:02] LABS: AUTOMATED NEUTROPHIL # 11.2 TH/MM3 (1.8-7.7); BASOPHIL # 0.1 TH/MM3 (0-0.2); BASOPHIL % 0.9 % (0.0-2.0); EOSINOPHIL # 0.3 TH/MM3 (0-0.4); EOSINOPHIL % 2.5 % (0.0-4.0); HEMATOCRIT 33.6 % (35.0-46.0); HEMOGLOBIN 10.8 GM/DL (11.6-15.3); LYMPH % 7.2 % (9.0-44.0); MEAN CELL VOLUME 78.4 FL (80.0-100.0); MEAN CORPUSCULAR HEMOGLOBIN 25.1 PG (27.0-34.0); MEAN PLATELET VOLUME 7.1 FL (7.0-11.0); MONO % 6.1 % (0.0-8.0); MONOCYTE # 0.8 TH/MM3 (0-0.9); NEUT % 83.3 % (16.0-70.0); PLATELET COUNT 458 TH/MM3 (150-450); RED BLOOD COUNT 4.29 MIL/MM3 (4.00-5.30); RED CELL DISTRIBUTION WIDTH 17.8 % (11.6-17.2); WHITE BLOOD COUNT 13.5 TH/MM3 (4.0-11.0)
[2017-06-13 11:24] LABS: CALCIUM 8.4 MG/DL (8.5-10.1); CREATININE 1.39 MG/DL (0.50-1.00)
[2017-06-13 12:00] VITALS: BP 105/61; PULSE 65; RESP 18; TEMP 97.3; O2SAT 98
--- NOTE | 2017-06-13 15:11 | PD.WCN.NOT ---
Wound Consult Description: Wound consult ordered by for BLE Communicated with: Eddie DHILLON [address] [place] [address], Recommendation: 1) Follow up with out patient wound center. 2) Consult General surgery for wound care and debridement Additional Information: Patient was first seen at [address] [place] [address] for bilateral lower extremities by fiction and nonfiction writer prose and Eddie DHILLON [address] [place] [address].Patient could not tolerate dressing removal. notified Pain medication ordered @ 10:06.Embedded Nurse returned to patient room 30 min after medication given.Patients dressing were soaked with normal saline for 30 min.fiction and nonfiction writer prose attempted to removed dressing Eddie DHILLON present with fiction and nonfiction writer prose.Patient continuously screamed out when lower extremities were remotely touched.Dressing removed with difficulty .Multiple wounds noted to bilateral lower extremities unable to measure due to pain.lower extremities left open to air per .Disposable moister control pads left under lower extremities. Keren Tan [facility] Jun 13, 2017 15:11
[2017-06-13 16:00] VITALS: BP 168/70; PULSE 75; RESP 22; TEMP 98.3; O2SAT 99
[2017-06-13] MEDS: ENOXAPARIN SODIUM 40 MG/0.4 ML SYRINGE SQ SCH (16:08)
[2017-06-13 20:00] VITALS: BP 131/60; PULSE 72; RESP 16; TEMP 98.3; O2SAT 98
[2017-06-14] VITALS: BP 138/70; PULSE 63; RESP 16; TEMP 98; O2SAT 100
[2017-06-14] MEDS: oxyCODONE/ACETAMINOPHEN 7.5 MG/325 MG TAB PO PRN ×5 (02:06→19:47)
[2017-06-14 04:00] VITALS: BP 108/56; PULSE 61; RESP 18; TEMP 98.1; O2SAT 99
[2017-06-14] MEDS: VANCOMYCIN INJ 1,000 MG in SODIUM CHLOR 0.9% 250 ML INJ 250 ML IV SCH ×2 (04:00→15:43)
[2017-06-14] MEDS: PIPERACIL-TAZO 3.375 GM PREMIX 50 ML IV SCH (06:05)
[2017-06-14 08:00] VITALS: BP 117/65; PULSE 61; RESP 20; TEMP 98; O2SAT 97
[2017-06-14] MEDS: INSULIN ASPART SUPPLEMENTAL SCALE SQ SCH ×4 (08:00→21:00)
[2017-06-14] MEDS: SODIUM CHLORIDE 0.9% FLUSH 10 ML FLUSH IV FLUSH SCH ×2 (08:27→19:46)
[2017-06-14] MEDS: METOPROLOL SUCCINATE 50 MG EXTENDED RELEASE TAB PO SCH ×2 (08:28→19:47)
[2017-06-14] MEDS: FUROSEMIDE 40 MG TAB PO SCH (08:29)
[2017-06-14] MEDS: DOCUSATE SODIUM 50 MG/SENNA 8.6 MG TAB PO SCH ×2 (08:29→19:47)
[2017-06-14] MEDS: metFORMIN HCL 500 MG TAB PO SCH (08:29)
[2017-06-14] MEDS: ASPIRIN EC 81 MG TABEC PO SCH (08:29)
--- NOTE | 2017-06-14 11:42 | HHI.PR ---
Subjective Remarks Follow-up sepsis/bilateral lower extremity cellulitis/chronic venous stasis 06/12/17-patient seen and examined, currently afebrile and complains of bilateral lower extremity pain. States, she's had poor care after discharge from previous hospitalization. 06/13/17-patient seen and examined, no acute event overnight and currently afebrile.+ BLE pain. Case discussed with director case regarding discharge disposition. 06/14/17-patient seen and examined, currently afebrile. Wound care nurse was unable to complete assessment of bilateral lower extremities wounds yesterday as patient was screaming Objective Vitals Vital Signs Date Time Temp Pulse Resp B/P (MAP) Pulse Ox O2 Delivery O2 Flow Rate FiO2 06/14/17 08:00 97 Room Air 06/14/17 08:00 98.0 61 20 117/65 (82) 97 06/14/17 04:00 98.1 61 18 108/56 (73) 99 06/14/17 04:00 Room Air 06/14/17 00:00 98.0 63 16 138/70 (92) 100 06/14/17 00:00 Room Air 06/13/17 20:00 98.3 72 16 131/60 (83) 98 06/13/17 20:00 Room Air 06/13/17 16:00 98.3 75 22 168/70 (102) 99 06/13/17 12:00 97.3 65 18 105/61 (76) 98 I/O 06/13/17 06/13/17 06/13/17 06/14/17 06/14/17 06/14/17 06:59 14:59 22:59 06:59 14:59 22:59 Intake Total 600 ml 770 ml 900 ml Output Total 520 ml 1300 ml Balance 80 ml 770 ml -400 ml Intake Oral 300 ml 720 ml 600 ml IV Total 300 ml 50 ml 300 ml Output Urine Total 520 ml 1300 ml # Voids 1 # Bowel Movements 0 0 Result Diagram: 06/13/17 1010 06/13/17 1010 Objective Remarks GENERAL: NAD SKIN: Warm and dry. HEAD: Normocephalic. EYES: No scleral icterus. No injection or drainage. NECK: Supple, trachea midline. No JVD or lymphadenopathy. CARDIOVASCULAR: Regular rate and rhythm without murmurs, gallops, or rubs. RESPIRATORY: Breath sounds equal bilaterally. No accessory muscle use. GASTROINTESTINAL: Abdomen soft, non-tender, nondistended. MUSCULOSKELETAL: No cyanosis; BLE with open sores/wounds BACK: Nontender without obvious deformity. No CVA tenderness. A/P Problem List: (1) Sepsis ICD Code: A41.9 - Sepsis, unspecified organism Status: Acute (2) Cellulitis ICD Code: L03.90 - Cellulitis, unspecified Status: Acute Assessment and Plan 62-year-old female with Sepsis-Resolved Secondary to bilateral lower extremity edema Currently on vancomycin and Zosyn ; and wound cultures +MRSA and Stenotrophomonas Maltophilia. Will d/c Zosyn Bilateral lower extremity cellulitis-MRSA Chronic venous stasis wound cultures +MRSA and Stenotrophomonas Maltophilia D/c Zosyn and continue with Vancomycin. Likely discharge on PO Bactrim DS Appreciate input from Wound care nurse. Pain management during dressing change Physician consult pending Diabetes type 2 Continue metformin +ISS Hypertension Continue Toprol-XL Acute on chronic kidney disease Renal indices improving Hyperkalemia Resolved DVT prophylaxis: Heparin subcutaneous every 12 hours Problem Qualifiers (1) Sepsis: Qualified Codes: A41.9 - Sepsis, unspecified organism (2) Cellulitis: Qualified Codes: L03.119 - Cellulitis of unspecified part of limb Damion Simon MD Jun 14, 2017 11:42
[2017-06-14 12:00] VITALS: BP 107/50; PULSE 66; RESP 20; TEMP 98; O2SAT 97
[2017-06-14] MEDS: ENOXAPARIN SODIUM 40 MG/0.4 ML SYRINGE SQ SCH (15:44)
[2017-06-14 16:10] VITALS: BP 107/52; PULSE 66; RESP 19; TEMP 98.1; O2SAT 97
[2017-06-14] MEDS ORDERED: GLUCAGON 1 MG/ML VIAL OTHER PRN (18:30)
[2017-06-14] MEDS ORDERED: DEXTROSE 50% IN WATER 50 ML VIAL(D50) IV PUSH PRN (18:30)
[2017-06-14 20:00] VITALS: BP 155/68; PULSE 68; RESP 18; TEMP 98.8; O2SAT 99
[2017-06-15] VITALS: BP 127/67; PULSE 68; RESP 18; TEMP 98.3; O2SAT 99
[2017-06-15] MEDS: oxyCODONE/ACETAMINOPHEN 7.5 MG/325 MG TAB PO PRN ×4 (00:15→16:07)
[2017-06-15 04:00] VITALS: BP 124/63; PULSE 74; RESP 18; TEMP 98.1; O2SAT 98
[2017-06-15] MEDS: VANCOMYCIN INJ 1,000 MG in SODIUM CHLOR 0.9% 250 ML INJ 250 ML IV SCH ×2 (05:33→15:59)
[2017-06-15] MEDS: INSULIN ASPART SUPPLEMENTAL SCALE SQ SCH ×3 (08:00→17:00)
[2017-06-15 08:09] VITALS: BP 126/58; PULSE 59; RESP 18; TEMP 98; O2SAT 97
[2017-06-15] MEDS: FUROSEMIDE 40 MG TAB PO SCH (09:06)
[2017-06-15] MEDS: ASPIRIN EC 81 MG TABEC PO SCH (09:06)
[2017-06-15] MEDS: METOPROLOL SUCCINATE 50 MG EXTENDED RELEASE TAB PO SCH (09:06)
[2017-06-15] MEDS: DOCUSATE SODIUM 50 MG/SENNA 8.6 MG TAB PO SCH (09:07)
[2017-06-15] MEDS: SODIUM CHLORIDE 0.9% FLUSH 10 ML FLUSH IV FLUSH SCH (09:10)
[2017-06-15 10:25] LABS: BASOPHIL # 0.1 TH/MM3 (0-0.2); BASOPHIL % 1.1 % (0.0-2.0); EOSINOPHIL # 0.8 TH/MM3 (0-0.4); HEMATOCRIT 41.6 % (35.0-46.0); HEMOGLOBIN 13.2 GM/DL (11.6-15.3); LYMPH % 13.1 % (9.0-44.0); LYMPHOCYTE # 1.7 TH/MM3 (1.0-4.8); MEAN CELL VOLUME 78.2 FL (80.0-100.0); MEAN CORPUSCULAR HEMOGLOBIN 24.9 PG (27.0-34.0); MEAN CORPUSCULAR HGB CONC 31.8 % (32.0-36.0); MEAN PLATELET VOLUME 7.4 FL (7.0-11.0); MONO % 8.9 % (0.0-8.0); MONOCYTE # 1.1 TH/MM3 (0-0.9); NEUT % 70.9 % (16.0-70.0); PLATELET COUNT 366 TH/MM3 (150-450); RED BLOOD COUNT 5.32 MIL/MM3 (4.00-5.30); RED CELL DISTRIBUTION WIDTH 17.8 % (11.6-17.2); WHITE BLOOD COUNT 12.7 TH/MM3 (4.0-11.0)
--- NOTE | 2017-06-15 10:40 | HHI.PR ---
Subjective Remarks Follow-up sepsis/bilateral lower extremity cellulitis/chronic venous stasis 06/12/17-patient seen and examined, currently afebrile and complains of bilateral lower extremity pain. States, she's had poor care after discharge from previous hospitalization. 06/13/17-patient seen and examined, no acute event overnight and currently afebrile.+ BLE pain. Case discussed with pillowcase cleaner regarding discharge disposition. 06/14/17-patient seen and examined, currently afebrile. Wound care nurse was unable to complete assessment of bilateral lower extremities wounds yesterday as patient was screaming 06/15/17-patient seen and examined, still with drainable open sores to the posterior aspect of bilateral lower extremities. Currently afebrile Objective Vitals Vital Signs Date Time Temp Pulse Resp B/P (MAP) Pulse Ox O2 Delivery O2 Flow Rate FiO2 06/15/17 08:09 98.0 59 18 126/58 (80) 97 06/15/17 04:00 98.1 74 18 124/63 (83) 98 06/15/17 00:00 98.3 68 18 127/67 (87) 99 06/15/17 00:00 Room Air 06/14/17 20:00 Room Air 06/14/17 20:00 98.8 68 18 155/68 (97) 99 06/14/17 16:10 98.1 66 19 107/52 (70) 97 06/14/17 16:00 97 Room Air 06/14/17 12:00 97 Room Air 06/14/17 12:00 98.0 66 20 107/50 (69) 97 I/O 06/14/17 06/14/17 06/14/17 06/15/17 06/15/17 06/15/17 07:00 15:00 23:00 07:00 15:00 23:00 Intake Total 900 ml 730 ml 480 ml Output Total 1300 ml 1000 ml 400 ml Balance -400 ml -270 ml 80 ml Intake Oral 600 ml 480 ml 480 ml IV Total 300 ml 250 ml Output Urine Total 1300 ml 1000 ml 400 ml # Bowel Movements 0 0 Result Diagram: 06/15/17 0800 06/13/17 1010 Objective Remarks GENERAL: NAD SKIN: Warm and dry. HEAD: Normocephalic. EYES: No scleral icterus. No injection or drainage. NECK: Supple, trachea midline. No JVD or lymphadenopathy. CARDIOVASCULAR: Regular rate and rhythm without murmurs, gallops, or rubs. RESPIRATORY: Breath sounds equal bilaterally. No accessory muscle use. GASTROINTESTINAL: Abdomen soft, non-tender, nondistended. MUSCULOSKELETAL: No cyanosis; BLE with open sores/wounds mostly to posterior aspects BACK: Nontender without obvious deformity. No CVA tenderness. A/P Problem List: (1) Sepsis ICD Code: A41.9 - Sepsis, unspecified organism Status: Acute (2) Cellulitis ICD Code: L03.90 - Cellulitis, unspecified Status: Acute Assessment and Plan 62-year-old female with Sepsis-Resolved Secondary to bilateral lower extremity edema Currently on vancomycin and Zosyn ; and wound cultures +MRSA and Stenotrophomonas Maltophilia. Will d/c Zosyn Bilateral lower extremity cellulitis-MRSA Chronic venous stasis wound cultures +MRSA and Stenotrophomonas Maltophilia D/c Zosyn and continue with Vancomycin. Likely discharge on PO Bactrim DS Appreciate input from Wound care nurse. Pain management during dressing change Physician consult pending Diabetes type 2 Hold metformin secondary to worsening renal function + continue ISS Hypertension Continue Toprol-XL Acute on chronic kidney disease Renal indices improving. Check BMP this a.m. Hyperkalemia Resolved DVT prophylaxis: Heparin subcutaneous every 12 hours Problem Qualifiers (1) Sepsis: Qualified Codes: A41.9 - Sepsis, unspecified organism (2) Cellulitis: Qualified Codes: L03.119 - Cellulitis of unspecified part of limb Damion Simon MD Jun 15, 2017 10:40
[2017-06-15] MEDS ORDERED: OXYC1TAB35 PO (11:36)
[2017-06-15] MEDS ORDERED: FURO40TA PO (11:36)
[2017-06-15] MEDS ORDERED: METO1TAB9 PO (11:36)
[2017-06-15] MEDS ORDERED: BACT800T5 PO (11:37)
--- NOTE | 2017-06-15 11:41 | HHI.DS ---
Discharge Summary Admission Date Jun 11, 2017 at 14:36 Discharge Date: Jun 15, 2017 Admitting Diagnosis bilateral leg cellulitis, failed outpatient treatment, JOVANNY (1) Sepsis ICD Code: A41.9 - Sepsis, unspecified organism Status: Acute (2) Cellulitis ICD Code: L03.90 - Cellulitis, unspecified Status: Acute Procedures none Brief History - From Admission 62F with h/o obesity, DM2 and neuropathy presents with open infection of bilateral lower extremities, worse on the left than the right. This all began around April 30 when she visited [facility] with similar symptoms, during that hospitalization she was given antibiotics for 5 days, and had drastic improvement. She did not, however, have closure of the wounds and after going home had no follow up for wound care, so things slowly became worse. She revisited the ER at [facility] one more time, but was not admitted. Today she complains of intractable pain related to the open ulcerations of her lower legs. She has had subjective fevers and the smell and drainage has become worrisome to her. She is unable to care for herself at home and her daughter is not able to care for her at this level. CBC/BMP: 06/15/17 0800 06/13/17 1010 Significant Findings Laboratory Tests Test 06/13/17 10:10 06/15/17 08:00 White Blood Count 13.5 TH/MM3 (4.0-11.0) 12.7 TH/MM3 (4.0-11.0) Hemoglobin 10.8 GM/DL (11.6-15.3) Hematocrit 33.6 % (35.0-46.0) Mean Corpuscular Volume 78.4 FL (80.0-100.0) 78.2 FL (80.0-100.0) Mean Corpuscular Hemoglobin 25.1 PG (27.0-34.0) 24.9 PG (27.0-34.0) Red Cell Distribution Width 17.8 % (11.6-17.2) 17.8 % (11.6-17.2) Platelet Count 458 TH/MM3 (150-450) Neutrophils (%) (Auto) 83.3 % (16.0-70.0) 70.9 % (16.0-70.0) Lymphocytes (%) (Auto) 7.2 % (9.0-44.0) Neutrophils # (Auto) 11.2 TH/MM3 (1.8-7.7) 9.0 TH/MM3 (1.8-7.7) Blood Urea Nitrogen 31 MG/DL (7-18) Creatinine 1.39 MG/DL (0.50-1.00) Random Glucose 166 MG/DL (74-106) Calcium Level 8.4 MG/DL (8.5-10.1) Sodium Level 133 MEQ/L (136-145) Estimat Glomerular Filtration Rate 38 ML/MIN (>89) Red Blood Count 5.32 MIL/MM3 (4.00-5.30) Mean Corpuscular Hemoglobin Concent 31.8 % (32.0-36.0) Monocytes (%) (Auto) 8.9 % (0.0-8.0) Eosinophils (%) (Auto) 6.0 % (0.0-4.0) Monocytes # (Auto) 1.1 TH/MM3 (0-0.9) Eosinophils # (Auto) 0.8 TH/MM3 (0-0.4) PE at Discharge GENERAL: NAD SKIN: Warm and dry. HEAD: Normocephalic. EYES: No scleral icterus. No injection or drainage. NECK: Supple, trachea midline. No JVD or lymphadenopathy. CARDIOVASCULAR: Regular rate and rhythm without murmurs, gallops, or rubs. RESPIRATORY: Breath sounds equal bilaterally. No accessory muscle use. GASTROINTESTINAL: Abdomen soft, non-tender, nondistended. MUSCULOSKELETAL: No cyanosis; BLE with open sores/wounds mostly to posterior aspects BACK: Nontender without obvious deformity. No CVA tenderness. Hospital Course While in hospital, patient was treated for; Sepsis-Resolved Secondary to bilateral lower extremity edema Treated with vancomycin and Zosyn ; and wound cultures +MRSA and Stenotrophomonas Maltophilia. Zosyn was eventually discontinued. Patient will be discharged home on by mouth antibiotics 10 days total Bilateral lower extremity cellulitis-MRSA Chronic venous stasis wound cultures +MRSA and Stenotrophomonas Maltophilia She was treated with both vancomycin and Zosyn initially and to wound culture was obtained. Likely discharge on PO Bactrim DS Appreciate input from Wound care nurse. Diabetes type 2 Hold metformin secondary to worsening renal function + continue ISS Hypertension Treated with Toprol-XL Acute on chronic kidney disease Renal indices improving. Hyperkalemia Resolved DVT prophylaxis: Heparin subcutaneous every 12 hours Pt Condition on Discharge: Stable Discharge Disposition: Discharge Home Discharge Time: <= 30 minutes Discharge Instructions DIET: Follow Instructions for: Heart Healthy Diet, Diabetic Diet Activities you can perform: Regular-No Restrictions Follow up Referrals: PCP Follow-up - 1 Week New Medications: Sulfamethoxazole-Trimethoprim (Bactrim DS) 800-160 Mg Tab 1 TAB PO BID for Infection, #20 TAB 0 Refills Furosemide (Furosemide) 40 Mg Tab 40 MG PO DAILY for Prevent Heart Failure, #30 TAB 3 Refills Metoprolol Succinate ER 24 HR (Metoprolol Succinate ER 24 HR) 50 Mg Tab 50 MG PO BID for Blood Pressure Management, #60 TAB 3 Refills Oxycodone HCl/Acetaminophen (Oxycodon-Acetaminophen 7.5-325) 7.5 Mg-325 Mg Tablet 1 TAB PO Q4H PRN for pain scale 5-10, #10 TAB Continued Medications: Ascorbic Acid (Vitamin C) 1,000 Mg Tablet.er 1000 MG PO DAILY Aspirin DR (Aspirin Adult Low Strength) 81 Mg Tabdr 81 MG PO DAILY, TAB Cholecalciferol (Vitamin D-400) 400 Unit Tab 400 UNITS PO DAILY for Nutritional Supplement, #1 BOTTLE 0 Refills Metformin (Metformin) 500 Mg Tab 500 MG PO BIDPC for Blood Sugar Management, #60 TAB 0 Refills Pantoprazole (Protonix) 40 Mg Tab 40 MG PO HS for Reflux, #30 TAB 0 Refills Potassium Chloride Microencaps (Potassium Chloride Microencaps) 10 Meq Tab 10 MEQ PO DAILY for Electrolyte Replacement, #30 TAB 0 Refills Discontinued Medications: Furosemide (Lasix) 40 Mg Tab 40 MG PO DAILY, #30 TAB 0 Refills Metoprolol Succinate ER 24 HR (Toprol XL) 50 Mg Tab 50 MG PO BID, #30 TAB 0 Refills Damion Simon MD Jun 15, 2017 11:41
[2017-06-15 12:22] VITALS: BP 105/61; PULSE 62; RESP 18; TEMP 98; O2SAT 97
[2017-06-15 16:09] VITALS: BP 128/60; PULSE 59; RESP 20; TEMP 98.1; O2SAT 99
== END 2017-06-15 16:25 | disposition home or self-care (01) | DRG 872 ==
LOC: NEPC 12:34 → NEDA 14:36 → N04A 17:55
PROVIDERS: ADMIT Hospitalist; ATTEND Hospitalist
DX: A41.02 Sepsis due to Methicillin resistant Staphylococcus aureus (principal); N17.9 Acute kidney failure, unspecified; E87.2 Acidosis; E11.22 Type 2 diabetes mellitus with diabetic chronic kidney disease; L03.115 Cellulitis of right lower limb; L03.116 Cellulitis of left lower limb; Z68.43 Body mass index [BMI] 50.0-59.9, adult; R65.20 Severe sepsis without septic shock; E11.40 Type 2 diabetes mellitus with diabetic neuropathy, unspecified; E87.5 Hyperkalemia; N18.9 Chronic kidney disease, unspecified; E66.9 Obesity, unspecified; E86.0 Dehydration; R60.0 Localized edema; I87.8 Other specified disorders of veins; I12.9 Hypertensive chronic kidney disease with stage 1 through stage 4 chronic kidney disease, or unspecified chronic kidney disease; K21.9 Gastro-esophageal reflux disease without esophagitis; Z23 Encounter for immunization; Z79.84 Long term (current) use of oral hypoglycemic drugs
CPT/HCPCS: 80048; 80053; 82948; 83605; 85025; 86140; 86403; 87040; 87070; 87077; 87147; 87186; 87205; 90686; 90732; 99285; J0295; J1170; J1650; J1815; J1885; J2270; J2405; J2543; J3370; J7030; J7050; Q2038